=== PATIENT | female | born 1960 | race Caucasian/White ===

== ENCOUNTER 2021-04-16 13:02 | Emergency (ER) | payer OTHER ==
[~2021-04-16] VITALS: Ht 162.6 cm; Wt 72.6 kg
[2021-04-16] MEDS ORDERED: TOPROL XL50 M1 PO (13:06)
[2021-04-16] MEDS ORDERED: DICYCLOMINE HCL20 MG PO (13:12)
[2021-04-16] MEDS ORDERED: PANTOPRAZOLE SO40 MG PO (13:13)
[2021-04-16] MEDS ORDERED: VENLAFAXINE HCL75 M2 PO (13:13)
[2021-04-16] MEDS ORDERED: ESCITALOPRA5 MG/5 ML (13:13)
== END 2021-04-16 17:21 | disposition home or self-care (01) ==
LOC: ER 13:02
DX: S01.82XA Laceration with foreign body of other part of head, initial encounter (principal); S60.512A Abrasion of left hand, initial encounter; S60.511A Abrasion of right hand, initial encounter; S80.211A Abrasion, right knee, initial encounter; S90.01XA Contusion of right ankle, initial encounter; S70.02XA Contusion of left hip, initial encounter; W05.1XXA Fall from non-moving nonmotorized scooter, initial encounter; Y93.89 Activity, other specified; Y92.488 Other paved roadways as the place of occurrence of the external cause; Y99.8 Other external cause status